=== PATIENT | female | born 1960 | race Two or more races ===

== ENCOUNTER 2020-06-05 12:36 | Emergency (ER) | payer MEDICAID ==
[~2020-06-05] VITALS: Ht 157.5 cm; Wt 65.8 kg
[~2020-06-05 12:36] MED LIST: IBUPROFEN600 MG ORAL
[2020-06-05 12:42] VITALS: BP 148/76
--- NOTE | 2020-06-05 12:42 | NUR ---
ED Nurse Note: PT walked in to ed for c/o pain and swelling to left facial area x 3 days. pt reportsaffected area to be painful when she chews or eat
--- NOTE | 2020-06-05 13:33 | NUR ---
ED Nurse Note: blood sample collected and sent to lab .
--- NOTE | 2020-06-05 13:39 | Emergency Room Report ---
History of Present Illness General Chief Complaint: Pain Source: Patient Present Illness HPI 60-year-old female presents to the emergency department complaining of 6 out of 10 severity pain to the left side of her face and ear that is been progressive x3 days. Patient reports pain and progression of swelling when she eats or chews. Patient denies fevers or chills. She states she has tenderness to the left side of the jaw. She denies dental pain or recent dental procedures. She denies swelling in the neck or swollen tender lymph nodes. Patient has history of diabetes and reports that she uses insulin. No other aggravating or relieving factors at this time. She denies discharge from the ears. Denies loss of hearing. She denies dizziness, UPTON or N/V. Allergies: Coded Allergies: No Known Allergies (Unverified , 06/05/20) COVID-19 Screening Contact w/high risk pt: No Experienced COVID-19 symptoms?: No COVID-19 Testing performed DESKTOP SUPPORT TECHNICIAN: No Patient History Past Medical History: see triage record, DM Past Surgical History: none Pertinent Family History: none Now: No Reviewed Nursing Documentation: PMH: Agreed; PSxH: Agreed Nursing Documentation-PMH Past Medical History: No History, Except For Hx Diabetes: Yes Review of Systems All Other Systems: negative except mentioned in HPI Physical Exam Vital Signs Date Time Temp Pulse Resp B/P (MAP) Pulse Ox O2 Delivery O2 Flow Rate FiO2 06/05/20 12:38 97.2 63 15 151/70 (97) 100 Room Air Sp02 EP Interpretation: reviewed, normal General Appearance: no apparent distress, alert, GCS 15, non-toxic Head: normocephalic, atraumatic Eyes: bilateral eye normal inspection, bilateral eye PERRL ENT: hearing grossly normal, normal pharynx, normal voice, uvula midline, moist mucus membranes, other - Left TM is erythematous and bulging, there is preauricular tenderness on the left side, the canal is WNL. the right TM and canal are WNL Neck: full range of motion, no meningismus, no bony tend, other - No palpable stones on bimanual exam. Respiratory: lungs clear, normal breath sounds, speaking full sentences Cardiovascular #1: regular rate, rhythm Musculoskeletal: normal range of motion, gait/station normal, non-tender, other Neurologic: alert, motor strength/tone normal, oriented x3, sensory intact, re sponsive, speech normal Psychiatric: judgement/insight normal Lymphatic: other - ant. cervical LAD bilaterally. Medical Decision Making PA Attestation Dr. Murdock Is my supervising Physician whom patient management has been discussed with. Diagnostic Impression: Primary Impression: Otitis media Qualified Codes: H66.92 - Otitis media, unspecified, left ear Additional Impression: Facial pain ER Course 60-year-old female presents to the emergency department complaining of 6 out of 10 severity pain to the left side of her face and ear that is been progressive x3 days. Patient reports pain and progression of swelling when she eats or chews. Patient denies fevers or chills. She states she has tenderness to the left side of the jaw. She denies dental pain or recent dental procedures. She denies swelling in the neck or swollen tender lymph nodes. Patient has history of diabetes and reports that she uses insulin. No other aggravating or relievi ng factors at this time. She denies discharge from the ears. Denies loss of hearing. She denies dizziness, UPTON or N/V. Ddx considered but are not limited to sialoadenitis, sialolithiasis, mumps, abscess, neoplasm/mass, adenopathy. Vital signs: are WNL, pt. is afebrile H&PE are most consistent with sialoadenitis, due to extension down into the neck further imaging is required. ORDERS: -CT facial bones extending into the neck with contrast: Unremarkable -CBC with differential: -BMP: WNL pt. is a candidate for contrast ED INTERVENTIONS: None required at this time. DISCHARGE: At this time pt. is stable for d/c to home. Will provide printed patient care instructions, and any necessary prescriptions. Care plan and follow up instructions have been discussed with the patient prior to discharge. Labs Test 06/05/20 13:20 White Blood Count 6.2 K/UL (4.8-10.8) Red Blood Count 4.10 M/UL (4.20-5.40) Hemoglobin 12.0 G/DL (12.0-16.0) Hematocrit 36.3 % (37.0-47.0) Mean Corpuscular Volume 89 FL (80-99) Mean Corpuscular Hemoglobin 29.2 PG (27.0-31.0) Mean Corpuscular Hemoglobin Concent 33.0 G/DL (32.0-36.0) Red Cell Distribution Width 12.3 % (11.6-14.8) Platelet Count 264 K/UL (150-450) Mean Platelet Volume 6.3 FL (6.5-10.1) Neutrophils (%) (Auto) 51.2 % (45.0-75.0) Lymphocytes (%) (Auto) 35.2 % (20.0-45.0) Monocytes (%) (Auto) 7.7 % (1.0-10.0) Eosinophils (%) (Auto) 3.8 % (0.0-3.0) Basophils (%) (Auto) 2.1 % (0.0-2.0) Sodium Level 138 MMOL/L (136-145) Potassium Level 4.9 MMOL/L (3.5-5.1) Chloride Level 105 MMOL/L (98-107) Carbon Dioxide Level 24 MMOL/L (21-32) Anion Gap 9 mmol/L (5-15) Blood Urea Nitrogen 23 mg/dL (7-18) Creatinine 0.7 MG/DL (0.55-1.30) Estimat Glomerular Filtration Rate > 60 mL/min (>60) Glucose Level 212 MG/DL (74-106) Calcium Level 9.2 MG/DL (8.5-10.1) CT/MRI/US Diagnostic Results CT/MRI/US Diagnostic Results : Imaging Test Ordered: CT facial bones w. contrast Impression " IMPRESSION: NO ACUTE BONY OR SOFT TISSUE ABNORMALITY OF THE FACE DEMONSTRATED. " --Per official radiology report- Please see report for specific details. Last Vital Signs Date Time Temp Pulse Resp B/P (MAP) Pulse Ox O2 Delivery O2 Flow Rate FiO2 06/05/20 12:42 97.4 76 16 148/76 99 Room Air Disposition: HOME, SELF-CARE Condition: Stable Scripts Acetaminophen With Codeine (T#3) (TYLENOL #3 TAB*) Y Tab 1 TAB ORAL Q6H PRN for For Pain, #9 TAB Prov: Fatmata Richardson 06/05/20 Amoxicillin/Potassium Clav 875-125* (AUGMENTIN 875-125 TABLET*) 1 Each Tablet 1 TAB ORAL TWICE A DAY for 10 Days, #20 TAB Prov: Fatmata Richardson 06/05/20 Referrals: NOT CHOSEN IPA/,REFERRING (PCP) [facility] Patient Instructions: Otitis Media, Adult, [id number] Additional Instructions: Take medications as directed. Do not drink alcohol, drive, or operate heavy machinery while taking Tylenol # 3 as this may cause drowsiness. Follow up with a Primary Care Provider in 3-5 days, even if your symptoms have resolved. Return sooner to ED if new symptoms occur, or current symptoms become worse. - Please note that this Emergency Department Report was dictated using [employer] plumber technology software, occasionally this can lead to erroneous entry secondary to interpretation by the dictation equipment. Fatmata Richardson Jun 05, 2020 13:39
[2020-06-05 13:43] LABS: BASOPHILS % (AUTO) 2.1 % (0.0-2.0); EOSINOPHILS % (AUTO) 3.8 % (0.0-3.0); HEMATOCRIT 36.3 % (37.0-47.0); LYMPHOCYTES % (AUTO) 35.2 % (20.0-45.0); MEAN CORPUSCULAR VOLUME 89 FL (80-99); MONOCYTES % (AUTO) 7.7 % (1.0-10.0); NEUTROPHILS % (AUTO) 51.2 % (45.0-75.0); PLATELET COUNT 264 K/UL (150-450); RED CELL DISTRIBUTION WIDTH 12.3 % (11.6-14.8); WHITE BLOOD COUNT 6.2 K/UL (4.8-10.8)
[2020-06-05 13:54] LABS: ANION GAP 9 mmol/L (5-15); BLOOD UREA NITROGEN 23 mg/dL (7-18); CALCIUM 9.2 MG/DL (8.5-10.1); CARBON DIOXIDE 24 MMOL/L (21-32); CHLORIDE 105 MMOL/L (98-107); CREATININE 0.7 MG/DL (0.55-1.30); POTASSIUM 4.9 MMOL/L (3.5-5.1); SODIUM 138 MMOL/L (136-145)
--- NOTE | 2020-06-05 14:06 | NUR ---
ED Nurse Note: pt went to CT in stable condition via wheelchair accompanied by septic technician.
[2020-06-05] MEDS ORDERED: DiphenhydrAMINE 50mg/ml Inj IVP ONE (14:15)
[2020-06-05] MEDS ORDERED: Metoclopramide 10mg/2ml Inj IVP ONE (14:15)
[2020-06-05] MEDS ORDERED: Omnipaque-300 100ml vial IV PRN (14:15)
--- NOTE | 2020-06-05 14:24 | NUR ---
ED Nurse Note: back from ct in stable condition via w/c accompanied by lawn technician
[2020-06-05] MEDS ORDERED: cefTRIAXone 1 GM in NS 55 ML IVPB ONE (15:15)
--- NOTE | 2020-06-05 15:19 | Diagnostic Imaging Report ---
EXAM: CT CT Facial Bones with Contrast CLINICAL HISTORY: Left facial pain, progressive x3 days. TECHNIQUE: Axial images obtained through the face with IV contrast with subsequent sagittal and coronal reformat images. All CT scans at this facility are performed using dose modulation techniques as appropriate to a performed exam including the following: automated exposure control with adjustment of the mA and/or kV according to patient size. RADIATION DOSE: CTDIvol: 138.1 mGy DLP: 436.5 mGy-cm Dose information generated by the CT scanner is available in PACS. COMPARISON: None FINDINGS: Bony structures of the face appear intact. The orbits appear unremarkable. The zygomatic arches are intact. The pterygoid plates show normal configuration. The sinuses are normally pneumatized. No fluid level demonstrated. There is turbinate engorgement and left saundra bullosa. The TMJs are congruent. Soft tissue of the face appears unremarkable. IMPRESSION: NO ACUTE BONY OR SOFT TISSUE ABNORMALITY OF THE FACE DEMONSTRATED.
[2020-06-05] MEDS ORDERED: Augmentin 875mg Tab ORAL ONE (15:30)
[2020-06-05] MEDS ORDERED: HYDROcodone/Acetamin 5/325 tab ORAL ONE (15:30)
[2020-06-05] MEDS ORDERED: AUGMENTIN 875-1 EAC1 ORAL (15:33)
[2020-06-05] MEDS ORDERED: ACETAMINOPHEN-1 EAC1 ORAL (15:33)
[2020-06-05 15:47] VITALS: BP 142/80
--- NOTE | 2020-06-05 15:47 | NUR ---
ER DISCHARGE NOTE: Patient is cleared to be discharged per ERMD, pt is aox4, on room air, with stable vital signs. pt was given dc and prescription instructions, pt was able to verbalize understanding, pt id band and iv site removed without complications. pt is able to ambulate with steady gait. pt took all belongings.
== END 2020-06-05 15:47 | disposition home or self-care (01) ==
LOC: EMR 13:10
DX: H66.92 Otitis media, unspecified, left ear (principal); R52 Pain, unspecified; E11.9 Type 2 diabetes mellitus without complications; Z79.4 Long term (current) use of insulin
CPT/HCPCS: 36415; 70488; 80048; 85025; J0696; Q9965; Z7502; 99284